=== PATIENT | male | born 1960 | race Caucasian/White ===

== ENCOUNTER → 2018-09-16 | Outpatient (CLI) | payer BC ==
--- NOTE | 2018-09-16 10:51 | PCVCIMAG ---
APPROVED REPORT Doppler Spectral Velocity Analysis PSV / EDVPSV / EDV ECA (R) 152 / 15 cm/sECA (L) 110 / 6 cm/s dICA (R) 86 / 22 cm/sdICA (L) 84 / 29 cm/s Bakari (R) 89 / 32 cm/smICA (L) 70 / 24 cm/s pICA (R) 85 / 30 cm/spICA (L) 72 / 25 cm/s Bulb (R) 106 / 19 cm/sBulb (L) 81 / 16 cm/s dCCA (R) 102 / 19 cm/sdCCA (L) 80 / 16 cm/s mCCA (R) 100 / 19 cm/smCCA (L) 87 / 22 cm/s Vert (R) 51 / 18 cm/sVert (L) 52 / 16 cm/s ICA/CCA 0.87ICA/CCA 1.05 Findings The right carotid bulb has mild plaque. The right proximal internal carotid artery shows no significant stenosis. The right common carotid artery shows no significant stenosis. The right external carotid artery shows no significant stenosis. The left carotid bulb has minimal plaque. The left proximal internal carotid artery shows no significant stenosis. The left common carotid artery shows no significant stenosis. The left external carotid artery shows no significant stenosis. Conclusion 1. Mild bilateral plaquing without significant stenosis. 2. Antegrade vertebral flow.
== END | disposition home or self-care (01) ==
LOC: PCVCIMAG 10:00
PROVIDERS: ATTEND Internal Medicine Cardiovascular Disease
DX: I65.23 Occlusion and stenosis of bilateral carotid arteries (principal)
CPT/HCPCS: 93880

== ENCOUNTER → 2018-09-17 | Outpatient (CLI) | payer BC ==
--- NOTE | 2018-09-17 15:41 | PCVCIMAG ---
APPROVED REPORT Study performed: 09/17/2018 14:39:18 EXAM: Comprehensive 2D, Doppler, and color-flow Echocardiogram Patient Location: Echo lab Status: routine BSA: 2.37 HR: 71 bpmBP: 116/72 mmHg Rhythm: NSR Other Information Study Quality: Adequate Risk Factors: Cardiac Risk Factors: HTN Indications Diabetes Dyspnea CAD 2D Dimensions IVSd: 11.03 (7-11mm) LVDd: 46.84 mm PWd: 10.95 (7-11mm)Ascending Ao: 35.30 (22-36mm) LVDs: 30.76 (25-40mm) Left Atrium: 43.09 (27-40mm) Aortic Root: 32.11 mm LV Single Plane 4CH: 60.19 % LV Single Plane 2CH: 54.26 % Biplane EF: 57.6 % Volumes Left Atrial Volume (Systole) Single Plane 4CH: 80.72 mLSingle Plane 2CH: 75.82 mL LA ESV Index: 34.00 mL/m2 Aortic Valve AoV Peak Edgar.: 1.69 m/s AO Peak Gr.: 11.45 mmHgLVOT Max P.87 mmHg LVOT Max V: 1.21 m/s Mitral Valve E/A Ratio: 2.0 MV Decel. Time: 169.40 ms MV E Max Edgar.: 1.01 m/s MV A Edgar.: 0.51 m/s IVRT: 69.20 ms Pulmonary Valve PV Peak Edgar.: 1.13 m/sPV Peak Gr.: 5.13 mmHg Pulmonary Vein P Vein S: 0.39 m/sP Vein A: 0.29 m/s P Vein D: 0.56 m/sP Vein A Dur.: 110.7 msec P Vein S/D Ratio: 0.70 Tricuspid Valve TR Peak Edgar.: 2.57 m/s TR Peak Gr.: 26.48 mmHg Left Ventricle The left ventricle is normal size. There is normal LV segmental wall motion. There is normal left ventricular wall thickness. Left ventricular systolic function is normal. The left ventricular ejection fraction is within the normal range. LVEF is 55-60%. Right Ventricle The right ventricle is normal size. The right ventricular systolic function is normal. Atria Left atrium is borderline dilated. The right atrium size is normal. Aortic Valve The aortic valve is normal in structure. No aortic regurgitation is present. There is no aortic valvular stenosis. Mitral Valve The mitral valve is normal in structure. There is no mitral valve regurgitation noted. No evidence of mitral valve stenosis. Tricuspid Valve The tricuspid valve is normal in structure. Mild tricuspid regurgitation with PAP of 33 mmHg. Pulmonic Valve The pulmonary valve is normal in structure. Trace pulmonic regurgitation. Great Vessels The aortic root is normal in size. IVC is normal in size and collapses >50% with inspiration. Pericardium There is no pericardial effusion. There is no pleural effusion. <Conclusion> The left ventricle is normal size. There is normal left ventricular wall thickness. Left ventricular systolic function is normal. The right ventricle is normal size. Left atrium is borderline dilated. The right atrium size is normal. The aortic valve is normal in structure. The mitral valve is normal in structure. Mild tricuspid regurgitation with PAP of 33 mmHg.
--- NOTE | 2018-09-17 15:43 | PCVCIMAG ---
APPROVED REPORT Study performed: 09/17/2018 15:07:18 Exam: Stress Echocardiogram Indication: Dyspnea , Chest pain , Hypertension, DM Patient Location: Echo lab Stress Nurse: Tayler Viveros RN Status: routine Ht: 6 ft 1 in HR: 71 bpm BP: 116/72 mmHg Rhythm: NSR Procedure The patient underwent an Exercise Stress Test using the Jasper Protocol. Blood pressure, heart rate, and EKG were monitored. An Echocardiogram was performed by mechanical engineering technician in four stages in quad fashion. At peak stress, four selected images were obtained and placed side by side with resting images for comparison. Stress Test Details Stress Test: Exercise stress testing was performed using a Jasper protocol. HR Resting HR: 80 bpmMax Heart Rate (APMHR): 164 bpm Max HR Achieved: 157 bpmTarget HR (85% APMHR): 139 bpm % of APMHR: 95 Recovery HR: 98 bpm HR response to stress: Normal HR response to stress BP Resting BP: 116/72 mmHg Max BP: 150/70 mmHg Recovery BP: 120/66 mmHg BP response to stress: Normal blood pressure response to stress. ECG Resting ECG: Sinus Rhythm Stress ECG: Sinus Rhythm ST Change: Non-ischemic Arrhythmia: None Recovery ECG: Sinus Rhythm Recovery ST Change: Normal Recovery Arrhythmia: PVCs that resolved Clinical Reason for Termination: Maximal effort, leg fatigue Stress Symptoms: Dyspnea, leg fatigue Exercise duration: 8 min sec Highest Stage Achieved: Stage 3: 3.4 mph at 14% grade. Exercise capacity: 10.1 METs Scale: Sedentary Angina Score: None Pre-Stress Echo The resting Echocardiogram showed normal left ventricular contractility with an estimated Ejection Fraction of about >55%. Normal wall motion in all segments on baseline images. Post-Stress Echo The stress Echocardiogram showed normal left ventricular contractility with an estimated Ejection Fraction of about 65%. Normal augmentation of wall motion in all segments on post stress images. Clinical No clinical or ECG evidence for ischemia. Conclusion Clinical Response: Non-ischemic Exercise Capacity: Average Stress ECG Response: Non-ischemic Stress Echo Images: Non-ischemic The left ventricle is normal in size and wall thickness in both the rest and stress images. Other Information Study Quality: Adequate <Conclusion> The left ventricle is normal in size and wall thickness in both the rest and stress images.
== END | disposition home or self-care (01) ==
LOC: PCVCIMAG 14:43
PROVIDERS: ATTEND Internal Medicine Cardiovascular Disease
DX: I07.1 Rheumatic tricuspid insufficiency (principal); I25.10 Atherosclerotic heart disease of native coronary artery without angina pectoris; E11.9 Type 2 diabetes mellitus without complications; R06.09 Other forms of dyspnea
CPT/HCPCS: 93306; 93351